=== PATIENT | female | born 1970 | race Caucasian/White ===

== ENCOUNTER 2024-08-13 10:37 | Emergency (ER) | payer MEDICAID ==
[~2024-08-13] VITALS: Ht 162.6 cm; Wt 135.1 kg
[2024-08-13 10:41] VITALS: BP 206/91; PULSE 69; RESP 16; TEMP 98; O2SAT 95
== END 2024-08-13 12:25 | disposition home or self-care (01) ==
LOC: ER 10:38
DX: R60.0 Localized edema (principal); M79.661 Pain in right lower leg; Z88.0 Allergy status to penicillin; Z88.5 Allergy status to narcotic agent; Z88.8 Allergy status to other drugs, medicaments and biological substances
CPT/HCPCS: 93971; 99284